=== PATIENT | male | born 1950 | race Caucasian/White ===

== ENCOUNTER → 2017-02-09 | Outpatient (CLI) | payer OTHER, MEDICAID ==
[2015-12-30 18:52] VITALS: BP 142/77
[2017-02-09 09:26] LABS: BASOPHILS # (AUTO) 0.1 X10^3/uL (0.0-0.1); BASOPHILS % (AUTO) 0.7 % (0.2-1.0); EOSINOPHILS # (AUTO) 0.2 x10^3/uL (0.0-0.2); EOSINOPHILS % (AUTO) 2.4 % (0.9-2.9); HEMATOCRIT 42.3 % (42.0-54.0); HEMOGLOBIN 13.9 g/dL (13.5-18.0); LYMPHOCYTES # (AUTO) 1.7 X10^3/uL (1.3-2.9); LYMPHOCYTES % (AUTO) 18.5 % (21.0-51.0); MEAN CORPUSCULAR HEMOGLOBIN 34.4 pg (27.0-34.0); MEAN CORPUSCULAR HGB CONC 32.8 g/dL (33.0-35.0); MEAN CORPUSCULAR VOLUME 104.8 fL (80.0-100.0); MEAN PLATELET VOLUME 8.6 fL (7.4-11.0); MONOCYTES # (AUTO) 0.8 x10^3/uL (0.3-0.8); MONOCYTES % (AUTO) 8.1 % (0.0-13.0); NEUTROPHILS # (AUTO) 6.6 x10^3/uL (2.2-4.8); NEUTROPHILS % (AUTO) 70.3 % (42.0-75.0); PLATELET COUNT 262 X10^3/uL (150.0-450.0); RED BLOOD COUNT 4.03 X10^6/uL (4.7-6.0); RED CELL DISTRIBUTION WIDTH 13.1 % (11.6-16.5); WHITE BLOOD COUNT 9.3 X10^3/uL (3.6-10.0)
[2017-02-09 09:33] LABS: BLOOD UREA NITROGEN 13 mg/dL (7-18); CALCIUM 8.7 mg/dL (8.5-10.1); CARBON DIOXIDE 29.2 mmol/L (21-32); CHLORIDE 107 mmol/L (98-107); CREATININE 1.55 mg/dL (0.70-1.30); GLUCOSE 85 mg/dL (65-99); SODIUM 144 mmol/L (136-145); eGFR BLACK RACES 58 (>60); eGFR NON BLACK RACES 48 (>60)
--- NOTE | 2017-02-09 09:40 | RAD ---
Examination: Chest x-ray. Clinical history: Preop endarterectomy. Technique: PA and lateral views of the chest were obtained. Comparison: None available. Findings: The cardiac and mediastinal contours are within normal limits. No pneumothorax or pleural effusion is noted. The lungs appear clear. There is a minor thoracic scoliosis seen convex to the right, which may be positional in nature. Deg enerative changes are noted in the spine. No acute osseous abnormality is noted. Impression: 1. No acute disease. Reported By:
== END ==
LOC: RAD 08:48
PROVIDERS: ATTEND Surgery
DX: Z01.812 Encounter for preprocedural laboratory examination (principal); Z01.810 Encounter for preprocedural cardiovascular examination; Z01.811 Encounter for preprocedural respiratory examination; I65.23 Occlusion and stenosis of bilateral carotid arteries
CPT/HCPCS: 36415; 71020; 80048; 85025; 93005; 93010

== ENCOUNTER 2017-04-15 19:37 | Emergency (ER) | payer OTHER, MEDICAID ==
[2017-04-15 19:46] VITALS: BP 212/99; BMI 30.5
[2017-04-15 20:47] LABS: BASOPHILS # (AUTO) 0.1 X10^3/uL (0.0-0.1); BASOPHILS % (AUTO) 0.5 % (0.2-1.0); EOSINOPHILS # (AUTO) 0.1 x10^3/uL (0.0-0.2); EOSINOPHILS % (AUTO) 0.7 % (0.9-2.9); HEMATOCRIT 42.9 % (42.0-54.0); HEMOGLOBIN 14.4 g/dL (13.5-18.0); LYMPHOCYTES # (AUTO) 1.5 X10^3/uL (1.3-2.9); LYMPHOCYTES % (AUTO) 14.1 % (21.0-51.0); MEAN CORPUSCULAR HEMOGLOBIN 34.6 pg (27.0-34.0); MEAN CORPUSCULAR HGB CONC 33.5 g/dL (33.0-35.0); MEAN CORPUSCULAR VOLUME 103.3 fL (80.0-100.0); MONOCYTES # (AUTO) 0.8 x10^3/uL (0.3-0.8); MONOCYTES % (AUTO) 7.4 % (0.0-13.0); NEUTROPHILS # (AUTO) 8.3 x10^3/uL (2.2-4.8); NEUTROPHILS % (AUTO) 77.3 % (42.0-75.0); PLATELET COUNT 252 X10^3/uL (150.0-450.0); RED BLOOD COUNT 4.15 X10^6/uL (4.7-6.0); WHITE BLOOD COUNT 10.8 X10^3/uL (3.6-10.0)
--- NOTE | 2017-04-15 20:52 | DR.GENAD ---
HPI - PCP Primary Care Physician: Dr. 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 He states that he is not a candidate for surgery at this patricia.e Chief Complaint:: "I have had chest pain for about 2 weeks now that have been getting worse and worse. I have also had tingling. My chest pain is just getting worse." - Source History Provided: Patient - Timing Onset of Chief Complaint: 04/01/17 PMH - PM Past Medical History: Yes Past Medical History: CHF, COPD, Coronary Artery Disease, GERD, Hypertension Past Surgical History: Yes Surgical History: Thyroidectomy, Tonsillectomy - Family History History of Family Medical Conditions: Yes Family Medical History: Coronary Artery Disease, Hypertension - Social History Does patient currently use any type of tobacco product: No Have you used tobacco products in the last 12 months: No Type of Tobacco Use: None Does any household member use tobacco: No Do you use any recreational Drugs:: No - infectious screening In the last 2 months have you had wt loss of >10#?: NO Have you had fever, night sweats or hemotysis?: No Have you traveled outside the country in the last 6 months?: No Isolation: Standard ROS - Review of Systems Eyes: No Symptoms Reported ENTM: No Symptoms Reported Respiratoy: No Symptoms Reported Cardiovascular: No Symptoms Reported Gastrointestinal/Abdominal: No Symptoms Reported Genitourinary: No Symptoms Reported Neurological: No Symptoms Reported Musculoskeletal: No Symptoms Reported Integumentary: No Symptoms Reported Hematologic/Lymphatic: No Symptoms Reported Endocrine: No Symptoms Reported Psychiatric: No Symptoms Reported All Other Systems: Reviewed and Negative PE - Vital Signs Vitals: Temperature 99 F Pulse Rate 86 Respiratory Rate 23 Blood Pressure [Right Arm] 151/73 Blood Pressure 212/99 O2 Sat by Pulse Oximetry 98 - General Limitations: No Limitations General Appearance: Alert, In No Apparent Distress - Head Head Exam: Normal Inspection, Atraumatic - Eyes Eye exam: Normal Appearance, PERRL, EOMI - ENT ENT Exam: Normal Exam External Ear Exam: Normal External Inspection TM/Canal Exam: Bilateral Normal Nose Exam: Normal Nose Exam Mouth Exam: Normal Inspection Throat Exam: Normal Inspection - Chest Chest Inspection: Normal Inspection - Respiratory Respiratory Exam: Normal Lung Sounds Bilat Respiratory Exam: Bilateral Clear to Auscultation - Cardiovascular Cardiovascular Exam: Regular Rate - Abdominal Exam Abdominal Exam: Normal Inspection Abdominal Tenderness: negative: RUQ, RLQ, LUQ, LLQ, Epigastrium, Suprapubic, Diffuse, Mild, Moderate, Severe, Other - Extremities Extremities Exam: Normal Inspection - Back Back Exam: Normal Inspection - Neurologic Neurological Exam: Alert, Oriented X3, CN II-XII Intact - Psychiatric Psychiatric Exam: Normal Affect - Skin Skin Exam: Warm, Dry, Intact Course - Reevaluation 1st: Improved ROR - Labs Reviewed Laboratory Results Reviewed?: Yes (Cardiac enzymes negative) Result Diagrams: 04/15/17 20:35 04/15/17 20:35 Laboratory: WBC 10.8 X10^3/uL (3.6-10.0) H 04/15/17 20:35 RBC 4.15 X10^6/uL (4.7-6.0) L 04/15/17 20:35 Hgb 14.4 g/dL (13.5-18.0) 04/15/17 20:35 Hct 42.9 % (42.0-54.0) 04/15/17 20:35 MCV 103.3 fL (80.0-100.0) H 04/15/17 20:35 MCH 34.6 pg (27.0-34.0) H 04/15/17 20:35 MCHC 33.5 g/dL (33.0-35.0) 04/15/17 20:35 RDW 13.0 % (11.6-16.5) 04/15/17 20:35 Plt Count 252 X10^3/uL (150.0-450.0) 04/15/17 20:35 MPV 9.0 fL (7.4-11.0) 04/15/17 20:35 Neut % 77.3 % (42.0-75.0) H 04/15/17 20:35 Lymph % 14.1 % (21.0-51.0) L 04/15/17 20:35 Juncos % 7.4 % (0.0-13.0) 04/15/17 20:35 Eos % 0.7 % (0.9-2.9) L 04/15/17 20:35 Baso % 0.5 % (0.2-1.0) 04/15/17 20:35 Neut # 8.3 x10^3/uL (2.2-4.8) H 04/15/17 20:35 Lymph # 1.5 X10^3/uL (1.3-2.9) 04/15/17 20:35 Juncos # 0.8 x10^3/uL (0.3-0.8) 04/15/17 20:35 Eos # 0.1 x10^3/uL (0.0-0.2) 04/15/17 20:35 Baso # 0.1 X10^3/uL (0.0-0.1) 04/15/17 20:35 Absolute Nucleated RBC 0.0 /100WBC 04/15/17 20:35 INR Target Range - 04/15/17 20:35 INR 1.00 (0.8-1.3) 04/15/17 20:35 Sodium 140 mmol/L (136-145) 04/15/17 20:35 Corrected Sodium 140 mmol/L (136-145) 04/15/17 20:35 Potassium 4.2 mmol/L (3.5-5.1) 04/15/17 20:35 Chloride 105 mmol/L (98-107) 04/15/17 20:35 Carbon Dioxide 27.1 mmol/L (21-32) 04/15/17 20:35 BUN 13 mg/dL (7-18) 04/15/17 20:35 Creatinine 1.56 mg/dL (0.70-1.30) H 04/15/17 20:35 Est GFR (MDRD) Af Amer 57 (>60) L 04/15/17 20:35 Est GFR (MDRD) Non-Af 47 (>60) L 04/15/17 20:35 Glucose 115 mg/dL (65-99) H 04/15/17 20:35 Calcium 9.5 mg/dL (8.5-10.1) 04/15/17 20:35 Corrected Calcium TNP 04/15/17 20:35 Phosphorus 3.2 mg/dL (2.6-4.7) 04/15/17 20:35 Total Bilirubin 0.30 mg/dL (0.2-1.0) 04/15/17 20:35 AST 24 Units/L (15-37) 04/15/17 20:35 ALT 37 Units/L (12-78) 04/15/17 20:35 Alkaline Phosphatase 84 Units/L (46-116) 04/15/17 20:35 Creatine Kinase 314 Units/L (39-308) H 04/15/17 20:35 CK-MB (CK-2) 3.3 ng/mL (0-4.0) 04/15/17 20:35 CK/CKMB % Calc 1.1 % (<4) 04/15/17 20:35 Troponin I < 0.02 ng/mL (0-1.5) 04/15/17 20:35 Total Protein 7.2 g/dL (6.4-8.2) 04/15/17 20:35 Albumin 3.8 g/dL (3.4-5.0) 04/15/17 20:35 Globulin 3.4 g/dL (2.5-4.5) 04/15/17 20:35 Albumin/Globulin Ratio 1.1 Ratio (1.1-2.1) 04/15/17 20:35 - Diagnosis Discharge Problem: Neck pain Chest pain Qualifiers: Chest pain type: unspecified Qualified Code(s): R07.9 - Chest pain, unspecified - Discharge Plan Condition: Stable - Follow ups/Referrals Follow ups/Referrals: Nas Downing [Primary Care Provider] - 3 days - Instructions
[2017-04-15 21:04] LABS: BLOOD UREA NITROGEN 13 mg/dL (7-18); CALCIUM 9.5 mg/dL (8.5-10.1); CARBON DIOXIDE 27.1 mmol/L (21-32); CHLORIDE 105 mmol/L (98-107); COR NA(FOR HYPERGLY) 140 mmol/L (136-145); CREATININE 1.56 mg/dL (0.70-1.30); GLUCOSE 115 mg/dL (65-99); SODIUM 140 mmol/L (136-145); TROPONIN I < 0.02 ng/mL (0-1.5); eGFR BLACK RACES 57 (>60); eGFR NON BLACK RACES 47 (>60)
[2017-04-15 21:08] LABS: ALANINE AMINOTRANSFERASE 37 Units/L (12-78); ALBUMIN 3.8 g/dL (3.4-5.0); ALKALINE PHOSPHATASE 84 Units/L (46-116); ASPARTATE AMINO TRANSFERASE 24 Units/L (15-37); CKMB % 1.1 % (<4); CREATINE KINASE 314 Units/L (39-308); CREATINE KINASE MB 3.3 ng/mL (0-4.0); PHOSPHORUS 3.2 mg/dL (2.6-4.7); TOTAL PROTEIN 7.2 g/dL (6.4-8.2)
--- NOTE | 2017-04-15 21:41 | RAD ---
HISTORY: Chest pain Study: Single view chest Comparison: 03/25/2017 Findings: The lungs are clear without consolidation, effusion or pneumothorax. The cardiac and mediastinal co ntours are within normal limits. The soft tissues are unremarkable. IMPRESSION: 1. No acute cardiopulmonary abnormality. Reported By:
[2017-04-15] MEDS ORDERED: DUONEB 0.5 MG/3 MG NEB ONE (21:45)
[2017-04-15] MEDS ORDERED: DUONEB 0.5 MG/3 MG ONE (21:47)
== END 2017-04-15 22:53 | disposition home or self-care (01) ==
LOC: ER 19:53
DX: R07.89 Other chest pain (principal); M54.2 Cervicalgia
CPT/HCPCS: 36415; 71010; 80053; 82550; 82553; 84100; 84484; 85025; 85610; 93005; 94640; 99283; J7620

== ENCOUNTER 2018-06-11 17:20 | Observation (INO) ==
[2018-06-11] MEDS ORDERED: NITROSTAT SL PRN (18:11)
--- NOTE | 2018-06-11 18:28 | RAD ---
HISTORY: Chest pain and shortness of breath Study: Single-view chest Comparison: 04/15/2017 Findings: The trachea is midline. The cardiac silhouette is unremarkable. The lungs are clear without focal i nfiltrate or effusion. The bony thorax is unremarkable. IMPRESSION: 1. No acute cardiopulmonary disease. Reported By:
[2018-06-11 18:33] LABS: BASOPHILS # (AUTO) 0.1 X10^3/uL (0.0-0.1); BASOPHILS % (AUTO) 0.6 % (0.2-1.0); EOSINOPHILS # (AUTO) 0.1 x10^3/uL (0.0-0.2); EOSINOPHILS % (AUTO) 0.6 % (0.9-2.9); HEMOGLOBIN 15.9 g/dL (13.5-18.0); LYMPHOCYTES # (AUTO) 1.3 X10^3/uL (1.3-2.9); LYMPHOCYTES % (AUTO) 11.1 % (21.0-51.0); MEAN CORPUSCULAR HEMOGLOBIN 34.7 pg (27.0-34.0); MEAN CORPUSCULAR HGB CONC 33.8 g/dL (33.0-35.0); MEAN CORPUSCULAR VOLUME 102.8 fL (80.0-100.0); MEAN PLATELET VOLUME 8.4 fL (7.4-11.0); MONOCYTES # (AUTO) 0.8 x10^3/uL (0.3-0.8); MONOCYTES % (AUTO) 6.5 % (0.0-13.0); NEUTROPHILS # (AUTO) 9.6 x10^3/uL (2.2-4.8); NEUTROPHILS % (AUTO) 81.2 % (42.0-75.0); PLATELET COUNT 238 X10^3/uL (150.0-450.0); RED BLOOD COUNT 4.57 X10^6/uL (4.7-6.0); WHITE BLOOD COUNT 11.8 X10^3/uL (3.6-10.0)
[2018-06-11 18:37] VITALS: BMI 28.5
[2018-06-11 18:45] LABS: SODIUM 135 mmol/L (136-145)
[2018-06-11] MEDS ORDERED: PROVENTIL NEB TX 0.083% 2.5MG/ 3ML NEB PRN (18:53)
[2018-06-11 19:04] LABS: APPEARANCE,URINE CLEAR (CLEAR); COLOR,URINE YELLOW (YELLOW)
[2018-06-11 19:10] LABS: BILIRUBIN,URINE NEGATIVE (NEGATIVE); BLOOD/HEMOGLOBIN,URINE 2+ (NEGATIVE); GLUCOSE, URINE NEGATIVE (NEGATIVE); KETONES,URINE NEGATIVE (NEGATIVE); LEUKOCYTE ESTERASE ,URINE NEGATIVE (NEGATIVE); NITRITES,URINE NEGATIVE (NEGATIVE); PROTEIN,URINE NEGATIVE (NEGATIVE); UROBILINOGEN,URINE NORMAL (NORMAL)
[2018-06-11 19:38] LABS: RBC,URINE 0-2 /HPF (NONE SEEN); SQUAMOUS EPITHELIAL CELL,UR RARE /HPF (NEGATIVE)
[2018-06-11 19:39] LABS: BACTERIA,URINE NEGATIVE /HPF (NEGATIVE)
[2018-06-11 19:40] LABS: AMORPHOUS SEDIMENT,UR TRACE /HPF (NEGATIVE)
[2018-06-11 19:43] LABS: ALANINE AMINOTRANSFERASE 42 Units/L (12-78); ALBUMIN 3.7 g/dL (3.4-5.0); ALKALINE PHOSPHATASE 80 Units/L (46-116); ASPARTATE AMINO TRANSFERASE 35 Units/L (15-37); BLOOD UREA NITROGEN 17 mg/dL (7-18); CARBON DIOXIDE 29.4 mmol/L (21-32); CHLORIDE 97 mmol/L (98-107); CKMB % 0.5 % (<4); COR NA(FOR HYPERGLY) 136 mmol/L (136-145); CREATINE KINASE 575 Units/L (39-308); CREATINE KINASE MB 2.6 ng/mL (0-4.0); CREATININE 1.71 mg/dL (0.70-1.30); TOTAL PROTEIN 7.3 g/dL (6.4-8.2); TROPONIN I < 0.02 ng/mL (0-1.5); eGFR NON BLACK RACES 42 (>60)
[2018-06-11] MEDS: PULMICORT NEB TX 0.5 MG NEB SCH (20:25)
[2018-06-11] MEDS: DUONEB 0.5 MG/3 MG NEB SCH (20:25)
[2018-06-11] MEDS: SOMA TAB 350 MG PO SCH (20:34)
[2018-06-11] MEDS: VALIUM PO SCH (20:35)
[2018-06-11] MEDS: PREDNISONE TAB 5 MG PO SCH (20:36)
[2018-06-11] MEDS: ROBITUSSIN DM PO PRN (21:52)
[2018-06-12 00:51] LABS: CKMB % 0.4 % (<4); CREATINE KINASE 534 Units/L (39-308); CREATINE KINASE MB 2.2 ng/mL (0-4.0); TROPONIN I < 0.02 ng/mL (0-1.5)
[2018-06-12] MEDS: DUONEB 0.5 MG/3 MG NEB SCH ×3 (00:55→08:33)
[2018-06-12] MEDS: VALIUM PO SCH ×2 (04:27→05:14)
[2018-06-12] MEDS: SOMA TAB 350 MG PO SCH ×2 (04:27→05:14)
[2018-06-12] MEDS: ROBITUSSIN DM PO PRN (05:14)
[2018-06-12 05:43] LABS: BASOPHILS % (AUTO) 0.4 % (0.2-1.0); EOSINOPHILS # (AUTO) 0.1 x10^3/uL (0.0-0.2); EOSINOPHILS % (AUTO) 0.6 % (0.9-2.9); HEMATOCRIT 44.1 % (42.0-54.0); HEMOGLOBIN 15.1 g/dL (13.5-18.0); LYMPHOCYTES % (AUTO) 9.6 % (21.0-51.0); MEAN CORPUSCULAR HEMOGLOBIN 35.5 pg (27.0-34.0); MEAN CORPUSCULAR HGB CONC 34.3 g/dL (33.0-35.0); MEAN CORPUSCULAR VOLUME 103.5 fL (80.0-100.0); MEAN PLATELET VOLUME 8.8 fL (7.4-11.0); MONOCYTES # (AUTO) 0.7 x10^3/uL (0.3-0.8); MONOCYTES % (AUTO) 6.5 % (0.0-13.0); NEUTROPHILS # (AUTO) 8.8 x10^3/uL (2.2-4.8); NEUTROPHILS % (AUTO) 82.9 % (42.0-75.0); PLATELET COUNT 273 X10^3/uL (150.0-450.0); RED BLOOD COUNT 4.27 X10^6/uL (4.7-6.0); RED CELL DISTRIBUTION WIDTH 13.9 % (11.6-16.5); WHITE BLOOD COUNT 10.6 X10^3/uL (3.6-10.0)
[2018-06-12 05:55] LABS: ALANINE AMINOTRANSFERASE 42 Units/L (12-78); ALBUMIN 3.5 g/dL (3.4-5.0); ALKALINE PHOSPHATASE 76 Units/L (46-116); ASPARTATE AMINO TRANSFERASE 34 Units/L (15-37); BLOOD UREA NITROGEN 18 mg/dL (7-18); CALCIUM 9.3 mg/dL (8.5-10.1); CARBON DIOXIDE 27.9 mmol/L (21-32); CHLORIDE 99 mmol/L (98-107); CKMB % 0.4 % (<4); COR NA(FOR HYPERGLY) 139 mmol/L (136-145); CREATINE KINASE 523 Units/L (39-308); CREATINE KINASE MB 2.1 ng/mL (0-4.0); CREATININE 1.63 mg/dL (0.70-1.30); SODIUM 138 mmol/L (136-145); TOTAL PROTEIN 6.8 g/dL (6.4-8.2); TROPONIN I < 0.02 ng/mL (0-1.5); eGFR NON BLACK RACES 45 (>60)
[2018-06-12 06:13] LABS: CHOL/HDL RATIO 3.2 (0.0-5.0)
[2018-06-12] MEDS ORDERED: POTASSIUM CHL 60 MEQ/NS 0.45% 500 ML IV PRN (06:13)
[2018-06-12] MEDS ORDERED: K-LYTE EFFERVESCENT PO PRN (06:13)
[2018-06-12] MEDS ORDERED: K-RIDER 10 MEQ/NS 100 ML 10 MEQ/100 ML BAG IV PRN (06:13)
[2018-06-12] MEDS ORDERED: POTASSIUM CHL 40 MEQ/NS 0.45% 500 ML IV PRN (06:13)
[2018-06-12] MEDS ORDERED: POTASSIUM CHLORIDE LIQ 20 MEQ UDC PO PRN (06:13)
--- NOTE | 2018-06-12 07:42 | RAD ---
HISTORY: Shortness of breath Study: Chest AP portable Comparison: 06/11/2018 Findings: The heart is within normal limits in size. The wilman are normal. The lungs are free of acute infiltrat es. No pleural effusions are identified. The bony thorax is unremarkable. IMPRESSION: Lungs clear Reported By:
[2018-06-12] MEDS ORDERED: NS 1000 ML 1,000 ML IV SCH (08:00)
--- NOTE | 2018-06-12 08:09 | DR.H&P ---
H&P - History & Physical for Day of: H&P Date: 06/11/18 - Chief Complaint Chief Complaint: CHEST PAIN, SOB, DIZZINESS, CRAMPS IN LEGS - History of Present Illness History of Present Illness: IS A 68 YEAR OLD PATIENT OF OURS WHO WAS A DIRECT ADMISSION FOR COMPLAINTS OF CHEST PAIN, SHORTNESS OF BREATH, AND COPD EXACERBATION. PATIENT REPORTS BEING SEEN IN THE [facility] ER ON 06/10/18 WITH COMPLAINTS OF DIZZINESS AND MUSCLE CRAMPS IN HIS LEGS. HE COMPLAINED OF CHEST PAIN 05/07. MEDICAL HISTORY INCLUDES HYPERLIPIDEMIA, HYPERTENSION, ASTHMA, BRONCHITIS, COPD, GERD, HYPOTHYROIDISM, THROAT CANCER, KIDNEY CANCER, ANXIETY, RIGHT NEPHRECTOMY. ON ARRIVAL, VITALS WERE 98.2-94-20-94%-202/90. LABS WERE OBTAINED. ABNORMAL LAB VALUES INCLUDE THE FOLLOWING: WBC 11.8, RBC 457, SODIUM 135, CHLORIDE 97, CREATININE 1.71, GLUCOSE 148, CREATINE KINASE 575. CHEST XRAY OBTAINED AND REVEALED NO ACUTE CARDIOPULMONARY DISEASE. EKG REVEALED: SINUS RHYTHM, RIGHT BUNDLE BRANCH BLOCK WITH HR 94. HE WAS STARTED ON NEB TREATMENTS, NORMAL SALINE AT 125ML/HR, AND HOME MEDICATIONS WERE RESUMED. WE PLAN TO FOLLOW UP WITH SERIAL CARDIAC ENZYMES, EKGs, TELEMETRY, AND MORNING LABS. - Past Medical History Past Medical History: CHF, COPD, Coronary Artery Disease, GERD, Hypertension - Past Surgical History Surgical History: Appendectomy, Other - Family History Family Medical History: Cancer, PA, Coronary Artery Disease, Hypertension - Social History Does patient currently use any type of tobacco product: No Have you used tobacco products in the last 12 months: No Type of Tobacco Use: None Does any household member use tobacco: No Alcohol Use: None Drug Use: Prescription Drugs - Medications Home Medications: acetaminophen [From Tylenol] Allergy (Verified 06/11/18 18:17) codeine Allergy (Verified 06/11/18 18:28) AF Allergy (Uncoded 06/11/18 18:17) CONTINUE taking the following medications albuterol sulfate 2.5 mg INHALATION Q4H PRN 06/11/18 [History] albuterol sulfate [ProAir HFA] 2 puff INHALATION QID 06/11/18 [History] aspirin 325 mg PO DAILY 06/11/18 [History] cetirizine [Zyrtec] 10 mg PO DAILY 06/11/18 [History] clopidogrel [Plavix] 75 mg PO DAILY 06/11/18 [History] diazepam [Valium] 10 mg PO TID 06/11/18 [History] levothyroxine [Synthroid] 50 mcg PO DAILY 06/11/18 [History] omeprazole 40 mg PO DAILY 06/11/18 [History] oxycodone 15 mg PO TID 06/11/18 [History] prednisone 5 mg PO BID 06/11/18 [History] ranitidine HCl [Zantac] 150 mg PO DAILY 06/11/18 [History] roflumilast [Daliresp] 500 mcg PO DAILY 06/11/18 [History] rosuvastatin [Crestor] 40 mg PO DAILY 06/11/18 [History] tamsulosin [Flomax] 0.4 mg PO HS 06/11/18 [History] carisoprodol [Soma] 350 mg PO TID 06/12/18 [History] - Review of Systems Constitutional: Weakness Eyes: No Symptoms Reported ENT: No Symptoms Reported Respiratory: Cough, Shortness of Breath Cardiovascular: Chest Pain, Light Headedness Gastrointestinal: No Symptoms Reported Genitourinary: No Symptoms Reported Musculoskeletal: Leg Pain (BILATERAL LEG CRAMPING ) Skin: No Symptoms Reported Neurological: Weakness - Physical Exam Vital Signs: Temperature 98.3 F Pulse Rate [Left Brachial] 77 Pulse Rate 94 Respiratory Rate 20 Blood Pressure [Left Arm] 130/61 Blood Pressure [Right Arm] 151/73 Blood Pressure 212/99 O2 Sat by Pulse Oximetry 95 Oriented: Normal Eyes: Normal Ear: Normal Nose: Normal Throat: Normal Respiratory: Diminished Throughout Cardiovascular: Normal. negative: S3, S4, Murmur, Edema : Normal Auscultation: Bowel Sounds: Normal Palpation: Normal Tenderness: Normal Skin: Normal Musculoskeletal: Leg, Tender Psychiatric: Normal Mood Description: Calm Affect: Normal Speech Pattern: Clear - Assessment/Plan (1) Chest pain Qualifiers: Chest pain type: unspecified Qualified Code(s): R07.9 - Chest pain, unspecified Status: Acute Plan: SERIAL CARDIAC ENZYMES AND EKGs, TELEMETRY, SUPPLEMENTAL OXYGEN, CONTINUE TO MONITOR (2) COPD exacerbation Status: Acute Plan: NEB TREATMENTS, SUPPLEMENTAL OXYGEN, CONTINUE HOME MEDS (3) Rhabdomyolysis Qualifiers: Rhabdomyolysis type: non-traumatic Qualified Code(s): M62.82 - Rhabdomyolysis Status: Acute Plan: NORMAL SALINE AT 125ML/HR, CONTINUE TO MONITOR - Allergies Allergies/Adverse Reactions: Allergies Allergy/AdvReac Type Severity Reaction Status Date / Time acetaminophen [From Tylenol] Allergy Verified 06/11/18 18:17 codeine Allergy Verified 06/11/18 18:28 AF Allergy Uncoded 06/11/18 18:17
[2018-06-12] MEDS: PULMICORT NEB TX 0.5 MG NEB SCH (08:34)
[2018-06-12] MEDS: PREDNISONE TAB 5 MG PO SCH (08:52)
[2018-06-12] MEDS ORDERED: NS 250 ML IV 250 ML IV ONE (08:55)
[2018-06-12] MEDS ORDERED: CRESTOR TAB 10 MG PO SCH (09:00)
[2018-06-12] MEDS ORDERED: ECOTRIN TAB 325 MG PO SCH (09:00)
[2018-06-12] MEDS ORDERED: DALIRESP PO SCH (09:00)
[2018-06-12] MEDS ORDERED: PriLOSEC PO SCH (09:00)
[2018-06-12] MEDS ORDERED: FLOMAX PO SCH (09:00)
[2018-06-12] MEDS ORDERED: PLAVIX PO SCH (09:00)
[2018-06-12] MEDS ORDERED: ZANTAC PO SCH (09:00)
[2018-06-12] MEDS ORDERED: ZyrTEC TAB 10 MG PO SCH (09:00)
[2018-06-12] MEDS: ROXICODONE TAB 15 MG PO PRN ×2 (10:56)
[2018-06-12 11:30] VITALS: BP 174/90
[2018-06-12] MEDS ORDERED: SYNTHROID 50 mcg TAB PO SCH (16:30)
--- NOTE | 2018-06-23 00:41 | DR.CARTERD ---
- Discharge Summary for: Discharge Summary for Date of:: 06/12/18 - Admission Date Date of Admission: 06/11/18 - Admission Diagnoses Admission Diagnosis: (1) Chest pain (2) COPD exacerbation (3) Rhabdomyolysis - Discharge Date Discharge Date: 06/12/18 - Discharge Diagnoses Discharge Diagnosis: (1) Chest pain (2) COPD exacerbation (3) Rhabdomyolysis - Hospital Course Hospital Course: DAY ONE, MR. GARCIA IS A 68 YEAR OLD PATIENT OF OURS WHO WAS A DIRECT ADMISSION FOR COMPLAINTS OF CHEST PAIN, SHORTNESS OF BREATH, AND COPD EXACERBATION. PATIENT REPORTED BEING SEEN IN THE [facility] ER ON 06/10/18 WITH COMPLAINTS OF DIZZINESS AND MUSCLE CRAMPS IN HIS LEGS. HE COMPLAINED OF CHEST PAIN 05/07. MEDICAL HISTORY INCLUDED HYPERLIPIDEMIA, HYPERTENSION, ASTHMA, BRONCHITIS, COPD , GERD, HYPOTHYROIDISM, THROAT CANCER, KIDNEY CANCER, ANXIETY, RIGHT NEPHRECTOMY. ON ARRIVAL, VITALS WERE 98.2-94-20-94%-202/90. LABS WERE OBTAINED. ABNORMAL LAB VALUES INCLUDED THE FOLLOWING: WBC 11.8, RBC 457, SODIUM 135, CHLORIDE 97, CREATININE 1.71, GLUCOSE 148, CREATINE KINASE 575. CHEST XRAY OBTAINED AND REVEALED NO ACUTE CARDIOPULMONARY DISEASE. EKG REVEALED: SINUS RHYTHM, RIGHT BUNDLE BRANCH BLOCK WITH HR 94. PATIENT WAS NOTED WITH A PRODUCTIVE COUGH WITH THICK SPUTUM AND A SPUTUM CULTURE WAS OBTAINED. HE WAS STARTED ON NEB TREATMENTS, NORMAL SALINE AT 125ML/HR, AND HOME MEDICATIONS WERE RESUMED. WE OBTAINED SERIAL CARDIAC ENZYMES, EKG'S, AND MONITORED ON TELEMETRY. DAY TWO, PATIENT REPORTED HE WAS FEELING BETTER. 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 CARDIAC ENZYMES AND EKG'S ALL NORMAL. PATIENT DENIED CHEST PAIN OR SHORTNESS OF BREATH. CHEST XRAY REPORTED LUNGS CLEAR. ON AUSCULTATION, LUNGS WERE DIMINISHED BUT CLEAR. WE PLANNED FOR DISCHARGE WITH ANTIBIOTICS ACCORDING TO CULTURE AND SENSITIVITY. INSTRUCTIONS FOR MEDICATIONS AND FOLLOW UP WERE DISCUSSED WITH PATIENT AND FAMILY, BOTH VOICED UNDERSTANDING. PATIENT DISCHARGED HOME IN STABLE CONDITION WITH FAMILY. Labs: Microbiology 06/11/18 18:25 Sputum - Expectorated Sputum Sputum Culture - Final 06/11/18 18:25 Sputum - Expectorated Sputum - Final Methicillin Resis Staph Aureus - Discharge Medications Discharge Medications: Home Medication List albuterol sulfate 2.5 mg INHALATION Q4H PRN 06/11/18 [History] albuterol sulfate [ProAir HFA] 2 puff INHALATION QID 06/11/18 [History] aspirin 325 mg PO DAILY 06/11/18 [History] cetirizine [Zyrtec] 10 mg PO DAILY 06/11/18 [History] clopidogrel [Plavix] 75 mg PO DAILY 06/11/18 [History] diazepam [Valium] 10 mg PO TID 06/11/18 [History] levothyroxine [Synthroid] 50 mcg PO DAILY 06/11/18 [History] omeprazole 40 mg PO DAILY 06/11/18 [History] oxycodone 15 mg PO TID 06/11/18 [History] prednisone 5 mg PO BID 06/11/18 [History] ranitidine HCl [Zantac] 150 mg PO DAILY 06/11/18 [History] roflumilast [Daliresp] 500 mcg PO DAILY 06/11/18 [History] rosuvastatin [Crestor] 40 mg PO DAILY 06/11/18 [History] tamsulosin [Flomax] 0.4 mg PO HS 06/11/18 [History] carisoprodol [Soma] 350 mg PO TID 06/12/18 [History] cefdinir 300 mg PO Q12H #20 cap 06/12/18 [Rx] Prescriptions: Nas Talbot Brandon - Discharge Disposition Discharge Disposition: PATIENT IS TO FOLLOW UP IN OUR OFFICE IN ONE WEEK.
== END 2018-06-12 11:50 | disposition home or self-care (01) ==
LOC: MED/SURG
PROVIDERS: ADMIT Internal Medicine; ATTEND Internal Medicine
DX: R94.4 Abnormal results of kidney function studies; E03.8 Other specified hypothyroidism; J44.1 Chronic obstructive pulmonary disease with (acute) exacerbation; R06.02 Shortness of breath; E11.65 Type 2 diabetes mellitus with hyperglycemia; Z79.1 Long term (current) use of non-steroidal anti-inflammatories (NSAID); R42 Dizziness and giddiness; M62.82 Rhabdomyolysis; R94.31 Abnormal electrocardiogram [ECG] [EKG]; I10 Essential (primary) hypertension; R07.89 Other chest pain; K21.9 Gastro-esophageal reflux disease without esophagitis; E78.2 Mixed hyperlipidemia
CPT/HCPCS: 36415; 71010; 71045; 80053; 80061; 81001; 82550; 82553; 83735; 84484; 85025; 85610; 85730; 87070; 87077; 87186; 87205; 93005; 94640; 94760; A4216; A4222; G0378; J3480; J7050; J7512; J7620; J7626

== ENCOUNTER 2018-08-29 16:54 | Inpatient (IN) ==
[2018-08-29] MEDS ORDERED: NS 1/2 1000 ML IV 1,000 ML IV SCH (17:29)
[2018-08-29] MEDS: DUONEB 0.5 MG/3 MG NEB SCH ×2 (17:55→20:34)
[2018-08-29 18:06] VITALS: BMI 34.1
[2018-08-29 18:09] LABS: BASOPHILS % (AUTO) 0.5 % (0.2-1.0); EOSINOPHILS # (AUTO) 0.3 x10^3/uL (0.0-0.2); EOSINOPHILS % (AUTO) 2.8 % (0.9-2.9); LYMPHOCYTES # (AUTO) 1.4 X10^3/uL (1.3-2.9); LYMPHOCYTES % (AUTO) 15.2 % (21.0-51.0); MEAN CORPUSCULAR HEMOGLOBIN 35.2 pg (27.0-34.0); MEAN CORPUSCULAR HGB CONC 34.2 g/dL (33.0-35.0); MEAN CORPUSCULAR VOLUME 102.8 fL (80.0-100.0); MEAN PLATELET VOLUME 8.3 fL (7.4-11.0); MONOCYTES # (AUTO) 0.6 x10^3/uL (0.3-0.8); MONOCYTES % (AUTO) 6.5 % (0.0-13.0); NEUTROPHILS # (AUTO) 6.9 x10^3/uL (2.2-4.8); PLATELET COUNT 264 X10^3/uL (150.0-450.0); RED BLOOD COUNT 3.99 X10^6/uL (4.7-6.0); RED CELL DISTRIBUTION WIDTH 13.1 % (11.6-16.5); WHITE BLOOD COUNT 9.2 X10^3/uL (3.6-10.0)
[2018-08-29 18:21] LABS: ALANINE AMINOTRANSFERASE 34 Units/L (12-78); ALBUMIN 3.6 g/dL (3.4-5.0); ALKALINE PHOSPHATASE 80 Units/L (46-116); ASPARTATE AMINO TRANSFERASE 29 Units/L (15-37); BLOOD UREA NITROGEN 11 mg/dL (7-18); CALCIUM 8.6 mg/dL (8.5-10.1); CARBON DIOXIDE 28.9 mmol/L (21-32); CHLORIDE 104 mmol/L (98-107); COR NA(FOR HYPERGLY) 140 mmol/L (136-145); CREATININE 1.58 mg/dL (0.70-1.30); SODIUM 140 mmol/L (136-145); TOTAL PROTEIN 6.8 g/dL (6.4-8.2); eGFR NON BLACK RACES 46 (>60)
[2018-08-29] MEDS ORDERED: NS 1/2 1000 ML IV 1,000 ML IV ONE (19:33)
[2018-08-29] MEDS: ROBITUSSIN DM PO SCH ×2 (19:50→22:41)
[2018-08-29] MEDS: LEVAQUIN PREMIX IV 500 MG 500 MG/100 ML BAG IV SCH ×2 (19:50→19:53)
[2018-08-29] MEDS: PULMICORT NEB TX 0.5 MG NEB SCH (20:34)
[2018-08-29] MEDS ORDERED: ROSUVASTATIN 40 MG PO SCH (21:00)
[2018-08-29] MEDS ORDERED: CRESTOR TAB 10 MG PO SCH (21:00)
[2018-08-29] MEDS ORDERED: FLOMAX PO SCH (21:00)
--- NOTE | 2018-08-29 21:07 | DR.UPDATE ---
H&P Update History and Physical Update: WAS SEEN IN THE OFFICE TODAY. A H&P WAS COMPLETED PRIOR TO ADMISSION. PATIENT HAS BEEN SEEN AND EXAMINED WITH NO CHANGES NOTED TO H&P. Changes noted: NO Yes with the following:
[2018-08-29] MEDS: VALIUM PO SCH (22:08)
[2018-08-29] MEDS: ROXICODONE TAB 15 MG PO PRN (22:09)
[2018-08-29] MEDS: ZANTAC PO SCH (22:11)
--- NOTE | 2018-08-29 22:36 | RAD ---
CHEST RADIOGRAPHS PA AND LATERAL VIEWS CLINICAL HISTORY: 68-year-old male with pneumonia and difficulty swallowing. History of COPD and thro at cancer. COMPARISON: Chest radiograph 06/12/2018. FINDINGS: The cardiopericardial silhouette is stable with flattened hemidiaphragms and chronic promi nence of the interstitium and perihilar lung markings consistent with history of COPD. There is no fo kareen consolidation, pleural effusion or pneumothorax. The lungs are well inflated. Pulmonary vasculari ty is normal. Imaged osseous structures are intact. Soft tissues are unremarkable. IMPRESSION: No acute cardiopulmonary process with findings consistent with COPD. Reported By:
[2018-08-30] MEDS: DUONEB 0.5 MG/3 MG NEB SCH ×3 (01:14→09:10)
[2018-08-30 05:17] LABS: BASOPHILS % (AUTO) 0.4 % (0.2-1.0); EOSINOPHILS # (AUTO) 0.2 x10^3/uL (0.0-0.2); EOSINOPHILS % (AUTO) 2.5 % (0.9-2.9); HEMATOCRIT 39.2 % (42.0-54.0); HEMOGLOBIN 13.3 g/dL (13.5-18.0); LYMPHOCYTES # (AUTO) 1.5 X10^3/uL (1.3-2.9); LYMPHOCYTES % (AUTO) 15.9 % (21.0-51.0); MEAN CORPUSCULAR HEMOGLOBIN 35.2 pg (27.0-34.0); MEAN CORPUSCULAR HGB CONC 33.9 g/dL (33.0-35.0); MEAN CORPUSCULAR VOLUME 103.6 fL (80.0-100.0); MEAN PLATELET VOLUME 8.5 fL (7.4-11.0); MONOCYTES # (AUTO) 0.7 x10^3/uL (0.3-0.8); MONOCYTES % (AUTO) 7.2 % (0.0-13.0); PLATELET COUNT 275 X10^3/uL (150.0-450.0); RED BLOOD COUNT 3.78 X10^6/uL (4.7-6.0); RED CELL DISTRIBUTION WIDTH 13.3 % (11.6-16.5); WHITE BLOOD COUNT 9.5 X10^3/uL (3.6-10.0)
[2018-08-30] MEDS: VALIUM PO SCH (05:29)
[2018-08-30 05:31] LABS: ALANINE AMINOTRANSFERASE 32 Units/L (12-78); ALBUMIN 3.3 g/dL (3.4-5.0); ALKALINE PHOSPHATASE 74 Units/L (46-116); ASPARTATE AMINO TRANSFERASE 25 Units/L (15-37); BLOOD UREA NITROGEN 10 mg/dL (7-18); CALCIUM 8.1 mg/dL (8.5-10.1); CARBON DIOXIDE 27.6 mmol/L (21-32); CHLORIDE 105 mmol/L (98-107); COR CA(FOR HYPOALB) 8.7 mg/dL (8.5-10.1); CREATININE 1.54 mg/dL (0.70-1.30); SODIUM 139 mmol/L (136-145); TOTAL PROTEIN 6.3 g/dL (6.4-8.2); eGFR NON BLACK RACES 48 (>60)
--- NOTE | 2018-08-30 06:11 | RAD ---
HISTORY: Follow-up pneumonia, dysphagia Study: Chest AP portable Comparison: August 29, 2018 Findings: The heart is within normal limits in size. The wilman are normal. The lungs are well inflated and free of acute infiltrates. No pleural effusions are identified. The bony thorax is unremarkable. IMPRESSION: Lungs clear Reported By:
[2018-08-30 08:10] VITALS: BP 181/90
[2018-08-30] MEDS: ZANTAC PO SCH (08:19)
[2018-08-30] MEDS: ROBITUSSIN DM PO SCH (08:19)
[2018-08-30] MEDS ORDERED: PREDNISONE TAB 5 MG PO SCH (09:00)
[2018-08-30] MEDS ORDERED: PriLOSEC PO SCH (09:00)
[2018-08-30] MEDS ORDERED: ASPIRIN PO SCH (09:00)
[2018-08-30] MEDS ORDERED: SYNTHROID 50 mcg TAB PO SCH (09:00)
[2018-08-30] MEDS ORDERED: DALIRESP PO SCH (09:00)
[2018-08-30] MEDS: ROXICODONE TAB 15 MG PO PRN (09:02)
[2018-08-30] MEDS: PULMICORT NEB TX 0.5 MG NEB SCH (09:10)
--- NOTE | 2018-10-17 13:35 | DR.CARTERS ---
Short Stay Summary - Short Stay Summary for: Short Stay Summary for Date of:: 08/30/18 - Admission Date Date of Admission: 08/29/18 - Discharge Date Discharge Date: 08/30/18 - Admission Diagnoses (1) Pneumonia Status: Acute (2) Dysphagia Status: Acute - Hospital Course Hospital Course: PATIENT WAS SEEN AT OUR OFFICE TODAY WITH COMPLAINTS OF ABDOMINAL PAIN. HE STATED IT FELT LIKE IT WAS BURNING. HE ALSO STATED HE FELT LIKE HE HAD KNOTS IN HIS STOMACH. PATIENT WAS ADMITTED TO THE HOSPITAL FOR FURTHER EVALUATION AND TREATMENT OF PNEUMONIA AND DIFFICULTY SWALLOWING. ON ARRIVAL HIS VITALS WERE: TEMP. 97.8, PULSE 72, RESP. 22, O2 SAT. 98% NC/2L, BP 170/83. ABNORMAL LABS INCLUDED: RBC 3.99, HCT 41.0, MCV 102.8, MCH 35.2, CREATININE 1.58, GFR (AA) 56, GFR (NON) 46, GLUCOSE 115. WE STARTED IV FLUIDS, IV ANTIBIOTICS, AND RESPIRATORY TREATMENTS. WE CONTINUED TO EVALUATE, TREAT, AND MONITOR PATIENT. DAY TWO, PATIENT REQUESTED TO LEAVE AMA. AMA PAPER PROVIDED BY NURSING STAFF. PATIENT SIGNED OUT AMA AND LEFT HOSPITAL WITH FAMILY. - Discharge Medications Discharge Medications: Home Medication List ipratropium-albuterol 1 vial INHALATION Q4H PRN 08/29/18 [History] Prescriptions: - Discharge Plan Disposition: 07 AGAINST MEDICAL ADVICE Condition: Stable - Follow up/Referrals Follow up/Referrals: Nas Downing [Primary Care Provider] - 1 WEEK - Instructions
== END 2018-08-30 09:55 | disposition left against medical advice (07) | DRG 179 ==
LOC: MED/SURG 17:07
PROVIDERS: ADMIT Internal Medicine; ATTEND Internal Medicine
DX: R13.11 Dysphagia, oral phase; Z85.819 Personal history of malignant neoplasm of unspecified site of lip, oral cavity, and pharynx; E03.8 Other specified hypothyroidism; J15.0 Pneumonia due to Klebsiella pneumoniae; F41.1 Generalized anxiety disorder; E78.2 Mixed hyperlipidemia; R60.0 Localized edema; I10 Essential (primary) hypertension; Z85.528 Personal history of other malignant neoplasm of kidney; M51.36 Other intervertebral disc degeneration, lumbar region; R79.82 Elevated C-reactive protein (CRP); J44.9 Chronic obstructive pulmonary disease, unspecified; N18.9 Chronic kidney disease, unspecified; E11.65 Type 2 diabetes mellitus with hyperglycemia; I25.10 Atherosclerotic heart disease of native coronary artery without angina pectoris
CPT/HCPCS: 36415; 71010; 71020; 71045; 71046; 80053; 85025; 85652; 86140; 87040; 87070; 87077; 87186; 87205; 92610; 94640; 94669; 94760; A4222; J1956; J7512; J7620; J7626

== ENCOUNTER 2019-06-02 11:41 | Observation (INO) ==
[2019-06-02 11:53] VITALS: BMI 32.1
--- NOTE | 2019-06-02 11:58 | DR.DIZZY ---
HPI - Time seen Time seen: 11:52 - Complaint Chief Complaint Doctor Comments: Patient is complaining of dizziness this morning worst when he was standing. He denies headache, nausea or vomiting. He denies chest pain but has been having SOB and has taken his nebulizers today with his regular medicines. EMS states he said he took Valium and Oxycodone he takes for his back pain. 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 States he has irregular heart beat and they told him he needed a stress test but he would not have one done because people told him to stay away from those tests. He denies tobacco or alcohol use presently but smoked in the past. He denies fever, chills, cold or cough. He denies headache or weakness presently states he feels alright. States he had problems when his aide came to give him a bath this morning. He is a patient of Dr. Downing. - Nurses Notes Reviewed Nurses Notes Review: Yes - Source History Provided: Patient - Mode of Arrival Mode of Arrival: EMS - Timing Came on: Suddenly Symptom Onset: Unknown - Duration Duration: Constant Duration: Hours - Location of Weakness Weakness Location: Generalized - Context Onset: With light exertion History of: None Stroke Symptoms: Dizziness - Severity Severity: Abnormal activity level - Modifying factors Worsens: Change in Position - Associated signs and symptoms Associated Signs and Symptoms: Normal PMH - PMH Past Medical History: CHF, COPD, Coronary Artery Disease, GERD, Hypertension Past Surgical History: Yes Surgical History: Appendectomy, Other - Family History Family Medical History: Cancer, [place], Coronary Artery Disease, Hypertension - Social History Do you use any recreational Drugs:: No PE - General Limitations: No Limitations General Appearance: Alert, In No Apparent Distress, Obese - Head Head Exam: Normal Inspection, Atraumatic, Normocephalic - Eyes Eye exam: Normal Appearance, PERRL, EOMI. negative: Scleral Icterus, Conjunctival Injection, Nystagmus, Miosis, Mydrasis, Periorbital Swelling, Periorbital Tenderness, Other Pupils: Regular, Round: Bilateral, Reactive: Bilateral Sclera/Conjunctival: Normal Inspection: Bilateral Anterior Chamber: Normal Inspection: Bilateral Posterior Chamber: Deferred: Bilateral - ENT ENT Exam: Normal Exam, Normal Oropharynx, Normal External Ear Exam, Mucous Membranes Moist, TM's Normal Bilaterally - Neck Neck Exam: Normal Inspection, Full ROM, Trachea Midline - Chest Chest Inspection: Normal Inspection, Symmetric Chest Wall Rise - Respiratory Respiratory Exam: Prolonged Expiratory Phase Respiratory Exam: Bilateral Wheezing - Cardiovascular Cardiovascular Exam: Regular Rate, Normal Rhythm, Normal Heart Sounds - Abdominal Exam Abdominal Exam: Normal Bowel Sounds, Soft, Distention, Trauma (surgical small site epigastric area). negative: Tenderness, Guarding, Rebound, Rigidity, Dimni shed Bowel Sounds, Organomegaly Abdominal Tenderness: negative: RUQ, RLQ, LUQ, LLQ, Epigastrium, Suprapubic, Diffuse, Mild, Moderate, Severe, Other - Rectal Rectal Exam: Deferred, Normal Inspection - Back Back Exam: Normal Inspection, Full ROM. negative: Tenderness, (R) CVA Tenderness, (L) CVA Tenderness, Muscle Spasm, Paraspinal Tenderness, Vertebral Tenderness, Rashes, (R) Sciatic Notch Tenderness, (L) Sciatic Notch Tendern, (R) Straight Leg Raise, (L) Straight Leg Raise, Other - Neurologic Neurological Exam: Alert, Oriented X3, CN II-XII Intact, Reflexes Normal. negative: Normal Gait (gait not tested) Speech: Fluid Speech Cranial Nerve Exam: EOM Function (II, III, IV, ): Normal, Facial Sensation (V): Normal, Facial Palsy (VII): Normal, Gag reflex (XI): Normal, Spinal Accessory Function (XI): Normal, Tongue Deviation: Normal Motor Strength - LUE: 5/5 Motor Strength - RUE: 5/5 Motor Strength - LLE: 5/5 Motor Strength - RLE: 5/5 Upper Motor Neuron Exam: Sensory Extinction: Left Positive Sensory Exam Upper Extremity: Light Touch: Normal, 2 Point Discrimination: Normal Sensory Exam Lower Extremity: Light Touch: Normal, 2 Point Discrimination: Normal DTR: bicep (L): 2+, bicep (R): 2+, Patellar (L): 2+, patellar (R): 2+ - Psychiatric Psychiatric Exam: Normal Affect, Normal Mood. negative: Depressed, Agitated, Anxious, Flat Affect, Manic, Homicidal Ideation, Suicidal Ideation, Other - Skin Skin Exam: Warm, Dry, Intact, Normal Color - Vital Signs Vitals: Temperature 98.6 F Pulse Rate 93 Respiratory Rate 16 Blood Pressure [Left Arm] 146/76 Blood Pressure [Right Arm] 181/90 Blood Pressure 181/93 O2 Sat by Pulse Oximetry 96 ROR - Labs Reviewed Laboratory Results Reviewed?: Yes (All labs and x-ray results reviewed and discussed with patient) Result Diagrams: 06/02/19 12:10 06/02/19 12:10 - XRAY XRAY Interpreted by: Radiologist (CT head: No acute intracranial abnormality) XRAY Findings: CXR: No acute cardiopulmonary disease - EKG Rate: 92 [place]: Normal Rhythm: NSR Block: RBBB Hypertrophy: None ST: Nonsp - Labs Reviewed Laboratory: WBC 10.3 X10^3/uL (3.6-10.0) H 06/02/19 12:10 RBC 4.09 X10^6/uL (4.7-6.0) L 06/02/19 12:10 Hgb 14.7 g/dL (13.5-18.0) 06/02/19 12:10 Hct 43.1 % (42.0-54.0) 06/02/19 12:10 MCV 105.4 fL (80.0-100.0) H 06/02/19 12:10 MCH 35.9 pg (27.0-34.0) H 06/02/19 12:10 MCHC 34.0 g/dL (33.0-35.0) 06/02/19 12:10 RDW 12.6 % (11.6-16.5) 06/02/19 12:10 Plt Count 259 X10^3/uL (150.0-450.0) 06/02/19 12:10 Plt Count Comment Adequate (ADEQUATE) 06/02/19 12:10 MPV 8.4 fL (7.4-11.0) 06/02/19 12:10 Neut % (Auto) 86.1 % (42.0-75.0) H 06/02/19 12:10 Lymph % (Auto) 6.7 % (21.0-51.0) L 06/02/19 12:10 [place] % (Auto) 5.2 % (0.0-13.0) 06/02/19 12:10 Eos % (Auto) 1.6 % (0.9-2.9) 06/02/19 12:10 Baso % (Auto) 0.4 % (0.2-1.0) 06/02/19 12:10 Neut # (Auto) 8.9 x10^3/uL (2.2-4.8) H 06/02/19 12:10 Lymph # (Auto) 0.7 X10^3/uL (1.3-2.9) L 06/02/19 12:10 [place] # (Auto) 0.5 x10^3/uL (0.3-0.8) 06/02/19 12:10 Eos # (Auto) 0.2 x10^3/uL (0.0-0.2) 06/02/19 12:10 Baso # (Auto) 0.0 X10^3/uL (0.0-0.1) 06/02/19 12:10 Absolute Nucleated RBC 0.1 /100WBC 06/02/19 12:10 Plt Morphology Comment Normal (NORMAL) 06/02/19 12:10 RBC Morphology Abnormal (NORMAL) 06/02/19 12:10 Macrocytosis 1+ A 06/02/19 12:10 INR Target Range - 06/02/19 12:10 INR 1.03 (0.8-1.3) 06/02/19 12:10 APTT 38.3 SECONDS (22.9-36.5) H 06/02/19 12:10 PTT Comment - 06/02/19 12:10 D-Dimer 280 ng/mL (0-400) 06/02/19 12:10 Sodium 138 mmol/L (136-145) 06/02/19 12:10 Corrected Sodium TNP 06/02/19 12:10 Potassium 4.0 mmol/L (3.5-5.1) 06/02/19 12:10 Chloride 103 mmol/L (98-107) 06/02/19 12:10 Carbon Dioxide 26.3 mmol/L (21-32) 06/02/19 12:10 BUN 10 mg/dL (7-18) 06/02/19 12:10 Creatinine 1.53 mg/dL (0.70-1.30) H 06/02/19 12:10 Est GFR (MDRD) Af Amer 58 (>60) L 06/02/19 12:10 Est GFR (MDRD) Non-Af 48 (>60) L 06/02/19 12:10 Glucose 110 mg/dL (65-99) H 06/02/19 12:10 Calcium 9.3 mg/dL (8.5-10.1) 06/02/19 12:10 Corrected Calcium TNP 06/02/19 12:10 Magnesium 2.1 mg/dL (1.7-2.9) 06/02/19 12:10 Total Bilirubin 0.30 mg/dL (0.2-1.0) 06/02/19 12:10 AST 35 Units/L (15-37) 06/02/19 12:10 ALT 37 Units/L (12-78) 06/02/19 12:10 Alkaline Phosphatase 79 Units/L (46-116) 06/02/19 12:10 Creatine Kinase 733 Units/L (39-308) H 06/02/19 12:10 CK-MB (CK-2) 5.1 ng/mL (0-4.0) H* 06/02/19 12:10 CK/CKMB % Calc 0.7 % (<4) 06/02/19 12:10 Troponin I < 0.02 ng/mL (0-1.5) 06/02/19 12:10 Total Protein 7.0 g/dL (6.4-8.2) 06/02/19 12:10 Albumin 3.7 g/dL (3.4-5.0) 06/02/19 12:10 Globulin 3.3 g/dL (2.5-4.5) 06/02/19 12:10 Albumin/Globulin Ratio 1.1 Ratio (1.1-2.1) 06/02/19 12:10 Amylase 40 Units/L (25-115) 06/02/19 12:10 Lipase 88 Units/L (73-393) 06/02/19 12:10 Opioid - Opioid Risk Tool Total: 0 Total Score Risk Category: Low Risk - Diagnosis Discharge Problem: COPD exacerbation, Abnormal cardiac enzyme level, Essential hypertension, Dizzinesses, Hyperglycemia Chronic kidney disease (CKD) Qualifiers: Chronic kidney disease stage: stage 3 (moderate) Qualified Code(s): N18.3 - Chronic kidney disease, stage 3 (moderate) - Discharge Plan Disposition: ADMITTED INPATIENT Condition: Stable - Follow ups/Referrals Follow ups/Referrals: Nas Downing [Primary Care Provider] - 3 days - Instructions
--- NOTE | 2019-06-02 12:08 | RAD ---
HISTORY: Chest pain Study: Single-view chest Comparison: 08/30/2018 Findings: The trachea is midline. The cardiac silhouette is enlarged with a tortuous thoracic aorta. Chronic interstitial lung changes throughout the right and left chest are observed. Soft tissue attenuation overlying the right and left base is observed without focal infiltrate or effusion. The bony thorax is unremarkable. IMPRESSION: 1. No acute cardiopulmonary disease. Reported By:
[2019-06-02 12:20] LABS: BASOPHILS % (AUTO) 0.4 % (0.2-1.0); EOSINOPHILS # (AUTO) 0.2 x10^3/uL (0.0-0.2); EOSINOPHILS % (AUTO) 1.6 % (0.9-2.9); HEMATOCRIT 43.1 % (42.0-54.0); HEMOGLOBIN 14.7 g/dL (13.5-18.0); LYMPHOCYTES # (AUTO) 0.7 X10^3/uL (1.3-2.9); LYMPHOCYTES % (AUTO) 6.7 % (21.0-51.0); MEAN CORPUSCULAR HEMOGLOBIN 35.9 pg (27.0-34.0); MEAN CORPUSCULAR VOLUME 105.4 fL (80.0-100.0); MEAN PLATELET VOLUME 8.4 fL (7.4-11.0); MONOCYTES # (AUTO) 0.5 x10^3/uL (0.3-0.8); MONOCYTES % (AUTO) 5.2 % (0.0-13.0); NEUTROPHILS # (AUTO) 8.9 x10^3/uL (2.2-4.8); NEUTROPHILS % (AUTO) 86.1 % (42.0-75.0); PLATELET COUNT 259 X10^3/uL (150.0-450.0); RED BLOOD COUNT 4.09 X10^6/uL (4.7-6.0); RED CELL DISTRIBUTION WIDTH 12.6 % (11.6-16.5); WHITE BLOOD COUNT 10.3 X10^3/uL (3.6-10.0)
--- NOTE | 2019-06-02 12:23 | CT ---
HISTORY: Dizziness Study: CT brain without contrast Comparison: None Technique: Multiple axial images of the brain were obtained without administration of IV contrast. Dose reduction techniques including Automated Exposure Control (AEC) and adjustment of mA and kV were utilized. Findings: There is cerebral volume loss and nonspecific white matter hypoattenuation likely related to chronic microvascular ischemic changes. No evidence of acute hemorrhage, midline shift, mass effect or abnormal extra-axial fluid collection. The ventricular system is symmetric and nondilated. The soft tissues and osseous structures are unremarkable. The visualized paranasal sinuses are clear. IMPRESSION: 1.No acute intracranial abnormality. Reported By:
[2019-06-02 12:27] LABS: PLATELET MORPHOLOGY COMMENT NORMAL (NORMAL)
[2019-06-02 12:38] LABS: BLOOD UREA NITROGEN 10 mg/dL (7-18); CALCIUM 9.3 mg/dL (8.5-10.1); CARBON DIOXIDE 26.3 mmol/L (21-32); CHLORIDE 103 mmol/L (98-107); CREATININE 1.53 mg/dL (0.70-1.30); SODIUM 138 mmol/L (136-145); TROPONIN I < 0.02 ng/mL (0-1.5); eGFR NON BLACK RACES 48 (>60)
[2019-06-02 13:00] LABS: ALANINE AMINOTRANSFERASE 37 Units/L (12-78); ALBUMIN 3.7 g/dL (3.4-5.0); ALKALINE PHOSPHATASE 79 Units/L (46-116); AMYLASE 40 Units/L (25-115); ASPARTATE AMINO TRANSFERASE 35 Units/L (15-37); CKMB % 0.7 % (<4); CREATINE KINASE 733 Units/L (39-308); LIPASE 88 Units/L (73-393); MAGNESIUM 2.1 mg/dL (1.7-2.9)
[2019-06-02 13:01] LABS: CREATINE KINASE MB 5.1 ng/mL (0-4.0)
[2019-06-02] MEDS ORDERED: DUONEB 0.5 MG/3 MG NEB ONE (13:45)
[2019-06-02] MEDS ORDERED: DUONEB 0.5 MG/3 MG ONE (13:47)
[2019-06-02] MEDS ORDERED: SOLU-Medrol 125 MG VIAL IVP ONE (14:25)
[2019-06-02] MEDS ORDERED: ROCEPHIN VIAL 1 GRAM IVP ONE (14:29)
[2019-06-02] MEDS ORDERED: ROXICODONE TAB 15 MG PO PRN (15:56)
[2019-06-02] MEDS ORDERED: ZOFRAN TAB 4 MG PO PRN (15:56)
[2019-06-02 15:57] LABS: BILIRUBIN,URINE NEGATIVE (NEGATIVE); BLOOD/HEMOGLOBIN,URINE NEGATIVE (NEGATIVE); GLUCOSE, URINE NEGATIVE (NEGATIVE); KETONES,URINE NEGATIVE (NEGATIVE); LEUKOCYTE ESTERASE ,URINE NEGATIVE (NEGATIVE); NITRITES,URINE NEGATIVE (NEGATIVE); PROTEIN,URINE NEGATIVE (NEGATIVE); UROBILINOGEN,URINE NORMAL (NORMAL)
[2019-06-02 16:01] LABS: APPEARANCE,URINE CLEAR (CLEAR); COLOR,URINE YELLOW (YELLOW)
[2019-06-02] MEDS ORDERED: NS 1000 ML 1,000 ML ONE (16:14)
[2019-06-02] MEDS: NS 1000 ML 1,000 ML IV SCH (16:23)
[2019-06-02] MEDS: DUONEB 0.5 MG/3 MG NEB SCH ×2 (16:45→19:50)
[2019-06-02 19:21] LABS: CKMB % 0.7 % (<4); CREATINE KINASE 752 Units/L (39-308); TROPONIN I < 0.02 ng/mL (0-1.5)
[2019-06-02] MEDS: ZANTAC PO SCH (20:32)
[2019-06-02] MEDS: VALIUM PO SCH (21:00)
[2019-06-02] MEDS ORDERED: FLOMAX PO SCH (21:00)
[2019-06-02] MEDS: SOLU-Medrol 40 MG VIAL IVP SCH (21:00)
[2019-06-02] MEDS ORDERED: CRESTOR TAB 10 MG PO SCH (21:00)
[2019-06-03] MEDS: NS 1000 ML 1,000 ML IV SCH ×2 (00:10→05:36)
[2019-06-03] MEDS: DUONEB 0.5 MG/3 MG NEB SCH ×6 (01:06→20:22)
[2019-06-03 01:54] LABS: CKMB % 0.7 % (<4); CREATINE KINASE 617 Units/L (39-308); TROPONIN I < 0.02 ng/mL (0-1.5)
[2019-06-03 01:58] LABS: CREATINE KINASE MB 4.2 ng/mL (0-4.0)
[2019-06-03 05:36] LABS: BASOPHILS % (AUTO) 0.1 % (0.2-1.0); HEMATOCRIT 43.5 % (42.0-54.0); HEMOGLOBIN 14.7 g/dL (13.5-18.0); LYMPHOCYTES # (AUTO) 0.4 X10^3/uL (1.3-2.9); LYMPHOCYTES % (AUTO) 3.1 % (21.0-51.0); MEAN CORPUSCULAR HEMOGLOBIN 35.6 pg (27.0-34.0); MEAN CORPUSCULAR HGB CONC 33.7 g/dL (33.0-35.0); MEAN CORPUSCULAR VOLUME 105.7 fL (80.0-100.0); MEAN PLATELET VOLUME 8.7 fL (7.4-11.0); MONOCYTES # (AUTO) 0.2 x10^3/uL (0.3-0.8); MONOCYTES % (AUTO) 1.5 % (0.0-13.0); NEUTROPHILS # (AUTO) 12.5 x10^3/uL (2.2-4.8); NEUTROPHILS % (AUTO) 95.3 % (42.0-75.0); PLATELET COUNT 290 X10^3/uL (150.0-450.0); RED BLOOD COUNT 4.11 X10^6/uL (4.7-6.0); RED CELL DISTRIBUTION WIDTH 12.5 % (11.6-16.5); WHITE BLOOD COUNT 13.2 X10^3/uL (3.6-10.0)
[2019-06-03] MEDS: VALIUM PO SCH ×3 (05:36→21:14)
[2019-06-03] MEDS: SOLU-Medrol 40 MG VIAL IVP SCH (05:36)
[2019-06-03 05:38] LABS: CALCIUM 9.1 mg/dL (8.5-10.1); CARBON DIOXIDE 23.9 mmol/L (21-32); CREATININE 1.66 mg/dL (0.70-1.30)
[2019-06-03 06:11] LABS: PLATELET MORPHOLOGY COMMENT NORMAL (NORMAL)
[2019-06-03 06:31] LABS: CKMB % 0.7 % (<4); CREATINE KINASE 649 Units/L (39-308); TROPONIN I < 0.02 ng/mL (0-1.5)
[2019-06-03 06:35] LABS: CREATINE KINASE MB 4.4 ng/mL (0-4.0)
--- NOTE | 2019-06-03 06:57 | RAD ---
HISTORY: COPD Study: Single view chest Comparison: 06/02/2019 Findings: No infiltrate, effusion or pneumothorax identified. The cardiac and mediastinal contours are within normal limits. The soft tissues are unremarkable. IMPRESSION: 1. No acute cardiopulmonary abnormality. Reported By:
[2019-06-03] MEDS ORDERED: FLOMAX ONE (07:43)
[2019-06-03] MEDS ORDERED: CRESTOR TAB 10 MG PO ONE (07:44)
[2019-06-03] MEDS: SOMA TAB 350 MG PO PRN ×3 (08:16→16:29)
[2019-06-03] MEDS: FLOMAX PO SCH (08:59)
[2019-06-03] MEDS: CRESTOR TAB 10 MG PO SCH (08:59)
[2019-06-03] MEDS: ASPIRIN PO SCH (09:00)
[2019-06-03] MEDS ORDERED: PLAVIX PO SCH (09:00)
[2019-06-03] MEDS ORDERED: ROCEPHIN VIAL 1 GRAM IVP SCH (09:00)
[2019-06-03] MEDS ORDERED: PATIENT'S HOME MEDICATION (Triamterene-Hydrochlorothiazid [Triamterene-Hydrochlorothiazid] PO SCH (09:00)
[2019-06-03] MEDS ORDERED: ROSUVASTATIN 40 MG PO SCH (09:00)
[2019-06-03] MEDS: MAXZIDE 37.5/25 MG PO SCH (09:00)
[2019-06-03] MEDS: DALIRESP PO SCH (09:00)
[2019-06-03] MEDS: ZyrTEC TAB 10 MG PO SCH (09:01)
[2019-06-03] MEDS: ZANTAC PO SCH ×2 (09:01→20:50)
[2019-06-03] MEDS: SYNTHROID 50 mcg TAB PO SCH (09:01)
[2019-06-03] MEDS ORDERED: PHENERGAN INJ 25 MG IM PRN (13:57)
[2019-06-03] MEDS ORDERED: PHENERGAN INJ 25 MG IM ONE (14:01)
--- NOTE | 2019-06-03 14:33 | DR.H&P ---
H&P - History & Physical for Day of: H&P Date: 06/02/19 - Chief Complaint Chief Complaint: SOB, COUGH, DIZZINESS - History of Present Illness History of Present Illness: IS A 69 YEAR OLD PATIENT OF OURS WHO PRESENTED TO THE ER WITH COMPLAINTS OF DIZZINESS THAT WAS WORSE UPON STANDING. HE ALSO REPORTS SHORTNESS OF BREATH AND COUGH THAT DID NOT IMPROVE AFTER USING HIS NEBULIZERS. EMS REPORTS THAT PATIENT TOOK HIS VALIUM AND OXYCODONE FOR BACK PAIN PRIOR TO LEAVING HIS HOME. WE HAVE DISCUSSED WITH PATIENT THE NEED FOR A CARDIAC STRESS TEST IN THE OFFICE, BUT PATIENT HAS BEEN REFUSING. ON ARRIVAL, VITALS WERE 98.6-93-16-96%-181/93. LABS WERE OBTAINED. ABNORMAL LAB VALUES INCLUDE THE FOLLOWING: WBC 10.3, RBC 4.09, PTT 38.3, CREATININE 1.53, GLUCOSE 110, CREATINE KINASE 733, CKMB 5.1. TROPONIN IS LESS THAN 0.02. BLOOD AND SPUTUM CULTURES OBTAINED. A CHEST XRAY WAS OBTAINED AND REVEALED: The trachea is midline. The cardiac silhouette is enlarged with a tortuous thoracic aorta. Chronic interstitial lung changes throughout the right and left chest are observed. Soft tissue attenuation overlying the right and left base is observed without focal infiltrate or effusion. The bony thorax is unremarkable. EKG REVEALED: SINUS RHYTHM WITH HR 92. A BRAIN CT WAS OBTAINED AND REVEALED: NO ACUTE INTRACRANIAL ABNORMALITY. HE WAS GIVEN SOLU-MEDROL 125MG IV X 1, A DUO-NEB X 1, AND ROCEPHIN 1G IV X 1 IN THE ER. HE WAS ADMITTED FOR FURTHER EVALUATION AND TREATMENT OF COPD WITH ACUTE BRONCHITIS, RHABDOMYOLYSIS, DIZZINESS, AND CHRONIC KIDNEY DISEASE. HE WAS STARTED ON ROCEPHIN 1G IV DAILY, RESPIRATORY TX, SOLU-MEDROL 80MG IV DAILY, AND HOME MEDICATIONS WERE RESUMED. WE PLANNED TO FOLLOW UP WITH AM LABS AND CONTINUE TO MONITOR. - Past Medical History Past Medical History: CHF, COPD, Coronary Artery Disease, GERD, Hypertension - Past Surgical History Surgical History: Appendectomy, Other - Family History Family Medical History: Cancer, [place], Coronary Artery Disease, Hypertension - Social History Does patient currently use any type of tobacco product: No Have you used tobacco products in the last 12 months: No Type of Tobacco Use: None Does any household member use tobacco: No Alcohol Use: None Drug Use: None - Medications Home Medications: acetaminophen [From Tylenol] Allergy (Verified 06/11/18 18:17) codeine Allergy (Verified 06/11/18 18:28) levofloxacin [From Levaquin] Allergy (Verified 08/29/18 20:20) AF Allergy (Uncoded 06/11/18 18:17) CONTINUE taking the following medications cetirizine [Zyrtec] 10 mg PO DAILY 06/02/19 [History] ondansetron HCl [Zofran] 4 mg PO TID PRN 06/02/19 [History] triamterene-hydrochlorothiazid 1 tab PO DAILY 06/02/19 [History] - Review of Systems Constitutional: See HPI, Weakness, Other Eyes: No Symptoms Reported ENT: No Symptoms Reported Respiratory: See HPI, Cough, Shortness of Breath, SOB with Excertion Cardiovascular: Light Headedness Gastrointestinal: No Symptoms Reported Genitourinary: No Symptoms Reported Musculoskeletal: Back Pain Skin: No Symptoms Reported Neurological: Weakness - Physical Exam Vital Signs: Temperature 97.9 F Pulse Rate [Left Radial] 118 Pulse Rate 109 Respiratory Rate 22 Blood Pressure [Left Arm] 161/74 Blood Pressure [Right Arm] 181/90 Blood Pressure 181/93 O2 Sat by Pulse Oximetry 95 Oriented: Normal Eyes: Normal Ear: Normal Nose: Normal Throat: Normal Respiratory: Diminished Throughout Cardiovascular: Normal. negative: S3, S4, Murmur : Normal Auscultation: Bowel Sounds: Normal Palpation: Normal Tenderness: Normal Skin: Normal Musculoskeletal: Back:Lumbar Psychiatric: Normal Mood Description: Calm Affect: Normal Speech Pattern: Clear - Assessment/Plan (1) COPD with acute bronchitis Status: Acute Plan: ADMIT, IV ANTIBIOTICS, IV FLUIDS, IV STEROIDS, RESPIRATORY TX, SUPPLEMENTAL OXYGEN, CONTINUE TO MONITOR (2) Rhabdomyolysis Qualifiers: Rhabdomyolysis type: non-traumatic Status: Acute Plan: IV FLUIDS, ENCOURAGE PO INTAKE, CONTINUE TO MONITOR (3) Chronic kidney disease (CKD) Qualifiers: Chronic kidney disease stage: stage 3 (moderate) Qualified Code(s): N18.3 - Chronic kidney disease, stage 3 (moderate) Status: Acute Plan: IV FLUIDS, CONTINUE TO MONITOR (4) Dizziness Status: Acute - Allergies Allergies/Adverse Reactions: Allergies Allergy/AdvReac Type Severity Reaction Status Date / Time acetaminophen [From Tylenol] Allergy Verified 06/11/18 18:17 codeine Allergy Verified 06/11/18 18:28 levofloxacin [From Levaquin] Allergy Verified 08/29/18 20:20 AF Allergy Uncoded 06/11/18 18:17
[2019-06-03 15:20] LABS: CKMB % 0.9 % (<4); TROPONIN I 0.07 ng/mL (0-1.5)
[2019-06-03 15:28] LABS: CREATINE KINASE MB 6.6 ng/mL (0-4.0)
[2019-06-03 19:43] LABS: CKMB % 0.9 % (<4); TROPONIN I 0.06 ng/mL (0-1.5)
[2019-06-03 19:48] LABS: CREATINE KINASE MB 6.9 ng/mL (0-4.0)
[2019-06-03] MEDS: MILK OF MAGNESIA PO SCH (20:50)
[2019-06-03] MEDS ORDERED: COLACE CAP 100 MG PO SCH (21:00)
[2019-06-03] MEDS ORDERED: MIRALAX POWDER (1 DOSE 17 G) PO SCH (21:00)
[2019-06-03] MEDS ORDERED: NS 1000 ML 1,000 ML IV SCH (22:00)
[2019-06-03 23:09] LABS: CKMB % 0.9 % (<4); TROPONIN I 0.05 ng/mL (0-1.5)
[2019-06-03 23:41] LABS: CREATINE KINASE MB 6.3 ng/mL (0-4.0)
[2019-06-04] MEDS: DUONEB 0.5 MG/3 MG NEB SCH ×3 (00:06→08:46)
[2019-06-04 05:13] LABS: BASOPHILS % (AUTO) 0.1 % (0.2-1.0); EOSINOPHILS % (AUTO) 0.2 % (0.9-2.9); HEMOGLOBIN 13.8 g/dL (13.5-18.0); LYMPHOCYTES # (AUTO) 1.2 X10^3/uL (1.3-2.9); LYMPHOCYTES % (AUTO) 7.3 % (21.0-51.0); MEAN CORPUSCULAR HEMOGLOBIN 35.6 pg (27.0-34.0); MEAN CORPUSCULAR HGB CONC 33.7 g/dL (33.0-35.0); MEAN CORPUSCULAR VOLUME 105.6 fL (80.0-100.0); MEAN PLATELET VOLUME 8.4 fL (7.4-11.0); MONOCYTES # (AUTO) 1.1 x10^3/uL (0.3-0.8); MONOCYTES % (AUTO) 6.3 % (0.0-13.0); NEUTROPHILS # (AUTO) 14.3 x10^3/uL (2.2-4.8); NEUTROPHILS % (AUTO) 86.1 % (42.0-75.0); PLATELET COUNT 283 X10^3/uL (150.0-450.0); RED BLOOD COUNT 3.88 X10^6/uL (4.7-6.0); RED CELL DISTRIBUTION WIDTH 12.9 % (11.6-16.5); WHITE BLOOD COUNT 16.6 X10^3/uL (3.6-10.0)
[2019-06-04] MEDS: VALIUM PO SCH (05:48)
[2019-06-04 05:50] LABS: PLATELET MORPHOLOGY COMMENT NORMAL (NORMAL)
[2019-06-04 05:57] LABS: ALBUMIN 3.2 g/dL (3.4-5.0); CALCIUM 8.5 mg/dL (8.5-10.1); CARBON DIOXIDE 27.8 mmol/L (21-32); CKMB % 0.9 % (<4); COR CA(FOR HYPOALB) 9.1 mg/dL (8.5-10.1); CREATININE 1.56 mg/dL (0.70-1.30); TOTAL PROTEIN 6.2 g/dL (6.4-8.2); TROPONIN I 0.03 ng/mL (0-1.5)
[2019-06-04 06:00] LABS: CREATINE KINASE MB 5.4 ng/mL (0-4.0)
--- NOTE | 2019-06-04 06:09 | RAD ---
HISTORY: Dyspnea Study: Chest AP portable Comparison: 06/03/2019, 06/02/2019 Findings: The heart is within normal limits in size. The wilman are normal. The lungs are well inflated and free of acute alveolar infiltrates. No pleural effusions are identified. The bony thorax is unremarkable. IMPRESSION: No significant abnormality identified Reported By:
[2019-06-04] MEDS: MILK OF MAGNESIA PO SCH (08:02)
[2019-06-04] MEDS: CRESTOR TAB 10 MG PO SCH (08:03)
[2019-06-04] MEDS: FLOMAX PO SCH (08:03)
[2019-06-04] MEDS: ZANTAC PO SCH (08:03)
[2019-06-04] MEDS: ZyrTEC TAB 10 MG PO SCH (08:03)
[2019-06-04] MEDS: SYNTHROID 50 mcg TAB PO SCH (08:03)
[2019-06-04] MEDS: MAXZIDE 37.5/25 MG PO SCH (08:03)
[2019-06-04] MEDS: ASPIRIN PO SCH (08:03)
[2019-06-04] MEDS: DALIRESP PO SCH (08:04)
[2019-06-04] MEDS: SOMA TAB 350 MG PO PRN (08:04)
[2019-06-04 08:14] VITALS: BP 165/88
[2019-06-04] MEDS ORDERED: PHARMACY CONSULT - DOSE _____ XX SCH (09:00)
[2019-06-04] MEDS ORDERED: PREDNISONE TAB 5 MG PO SCH (09:00)
[2019-06-04] MEDS ORDERED: FORTAZ or TAZICEF VIAL INJ IVP SCH (10:00)
== END 2019-06-04 11:05 | disposition home or self-care (01) ==
LOC: ER 11:41 → MED/SURG 11:41
PROVIDERS: ADMIT Internal Medicine; ATTEND Internal Medicine
DX: M62.82 Rhabdomyolysis; R06.02 Shortness of breath; I12.9 Hypertensive chronic kidney disease with stage 1 through stage 4 chronic kidney disease, or unspecified chronic kidney disease; C18.9 Malignant neoplasm of colon, unspecified; I25.10 Atherosclerotic heart disease of native coronary artery without angina pectoris; R94.31 Abnormal electrocardiogram [ECG] [EKG]; R42 Dizziness and giddiness; K21.9 Gastro-esophageal reflux disease without esophagitis; Z85.21 Personal history of malignant neoplasm of larynx; J20.9 Acute bronchitis, unspecified; J44.1 Chronic obstructive pulmonary disease with (acute) exacerbation; N18.3 Chronic kidney disease, stage 3 (moderate); E11.65 Type 2 diabetes mellitus with hyperglycemia
CPT/HCPCS: 36415; 70450; 71010; 71045; 80048; 80053; 81003; 82150; 82270; 82550; 82553; 83690; 83735; 84484; 85025; 85378; 85610; 85730; 87040; 87070; 87205; 93005; 94640; 94760; 96367; 96374; 99284; A4222; G0378; J0696; J2550; J2920; J2930; J7030; J7512; J7620